=== PATIENT | male | born 1955 | race Caucasian/White ===

== ENCOUNTER → 2017-04-26 | Outpatient (CLI) | payer BC ==
[~2017-04-26] VITALS: Ht 177.8 cm; Wt 177.0 kg
[~2017-04-26] MED LIST: *RESP: ALBUTEROL 2.5 MG/3 ML NEB (PRN) PERIprocedural Use ONLY NEB ONE; ASPI-110 PO; CANA100T PO; CHLORHEXIDINE GLUCONATE 2 % 1 PACK (2 CLOTHS) TOPICAL PRN; DO NOT ADM ANY ANTICOAGULANT DRUGS PRN; GLIP5TAB8 PO; INSULIN HUMAN REGULAR 1,000 UNITS/10 ML VIAL SQ PRN; LACTATED RINGER'S 1000 ML IV PRN; LANTUS2P SQ; LISI2.5T3 PO; LOVA40TA PO; METF1000 PO; METOPROLOL TARTRATE 25 MG TAB PO PRN; NOVOLOGP2 SQ; POVIDONE IODINE 5% (ANTISEPSIS KIT) 4 APPLICATIONS EACH NARE PRN; PROPOFOL 200 MG/20 ML AMP IV ONE; SODIUM CHLORID 0.9% 500 ML IV PRN
[2017-04-26 09:03] VITALS: BP 160/83; PULSE 89; RESP 18; TEMP 99.1; O2SAT 98
--- NOTE | 2017-04-26 12:45 | PD.PROCEDR ---
GI Procedure PROCEDURE PERFORMED EGD with biopsy and an incomplete colonoscopy due to poor prep INDICATION FOR PROCEDURE History of colon polyps and history of reflux PROCEDURE: The procedure, risks and benefits were discussed with Mr. Ambrose and informed consent was obtained. Anesthesia sedated him with Diprivan. He was placed in the left lateral decubitus position. EGD: The Pentax videoscope was introduced through the oropharynx and advanced to the second portion of the duodenum under direct visualization. Retroflexion was performed in the stomach. FINDINGS: Esophagus this appeared to be unremarkable except for a slight irregularity of the Z line this was biopsied Stomach this appeared to be unremarkable except for some erythema in the antrum no ulcerations no erosions biopsies were taken for further evaluation retroflexion was unremarkable Duodenum this was normal Colonoscopy: The Pentax videoscope was introduced through the rectum and advanced to ascending colon. Retroflexion was performed in the rectum. Colonic prep was poor FINDINGS: As the scope was slowly withdrawn colonic mucosa was carefully inspected the patient was noted to have a small diminutive polyp in the ascending colon this was excised with a biopsy forceps the patient was also noted to have 3 sessile polyps small and medium in size these were also excised from the sigmoid with a cold snare and all were retrieved otherwise colonic examination was unremarkable retroflexion was also unremarkable ESTIMATED BLOOD LOSS: None SPECIMENS REMOVED: Esophageal, gastric, ascending, sigmoid COMPLICATIONS: None IMPRESSION: Irregular Z line Mild gastritis Incomplete colonoscopy to the ascending colon with poor prep Colon polyps PLAN: Await biopsy Recommend repeat colonoscopy within a year High-fiber diet Follow-up in clinic Damion Skelton MD Apr 26, 2017 12:45
[2017-04-26 14:20] VITALS: BP 144/60; PULSE 96; RESP 18; TEMP 98.6; O2SAT 97
--- NOTE | 2017-04-26 14:22 | EKG ---
Date Performed: 04/26/2017 Time Performed: 08:43:34 PTAGE: 61 years EKG: Sinus rhythm NONSPECIFIC T-WAVE ABNORMALITY BORDERLINE ECG NO SIGNIFICANT CHANGE FROM PRIOR ELECTROCARDIOGRAM. PREVIOUS TRACING : 11/07/1996 08.46 DOCTOR: Jorge Calloway Interpretating Date/Time 04/26/2017 14:19:57
== END ==
LOC: HEND 08:13
PROVIDERS: ATTEND Internal Medicine Gastroenterology
DX: K21.9 Gastro-esophageal reflux disease without esophagitis (principal); Z86.010 Personal history of colon polyps; K22.9 Disease of esophagus, unspecified; D12.2 Benign neoplasm of ascending colon; K29.70 Gastritis, unspecified, without bleeding; R94.31 Abnormal electrocardiogram [ECG] [EKG]; D12.5 Benign neoplasm of sigmoid colon
CPT/HCPCS: 00740; 00810; 43239; 45380; 45385; 82948; 88305; 93005; 94664; J7120; J7613; 88312